=== PATIENT | female | born 1980 | race Caucasian/White ===

== ENCOUNTER 2018-11-23 01:16 | Emergency (ER) | payer BC ==
[2018-11-23] MEDS ORDERED: Ketorolac Tromethamine 60 MG/2 ML VIAL ONE (01:53)
--- NOTE | 2018-11-23 08:19 | RAD ---
RIGHT KNEE FOUR VIEWS: History: Pain. Comparison: None. FINDINGS: Moderate sized joint effusion. No acute fracture or malalignment. Mild widening of the medial joint space. IMPRESSION: Moderate joint effusion, greater than expected for the minimal degenerative changes although there is widening of the medial joint space. There is also soft tissue swelling along the medial knee concern ing for possible transient lateral patellar dislocation. Orthopedic consultation advised. POS: CET
== END 2018-11-23 02:47 | disposition home or self-care (01) ==
LOC: ERS 01:16
DX: S80.01XA Contusion of right knee, initial encounter (principal); I10 Essential (primary) hypertension; F17.210 Nicotine dependence, cigarettes, uncomplicated; Z79.899 Other long term (current) drug therapy; Z79.84 Long term (current) use of oral hypoglycemic drugs; X50.9XXA Other and unspecified overexertion or strenuous movements or postures, initial encounter
CPT/HCPCS: 96372; J1885

== ENCOUNTER 2018-12-12 06:55 | Observation (INO) | payer BC ==
[2018-12-11 10:55] VITALS: BMI 34.4
[2018-12-12] MEDS ORDERED: Midazolam HCl 2 mg/2 ml Vial ONE ×2 (07:47→12:20)
[2018-12-12] MEDS ORDERED: Fentanyl 100 MCG/2 ML VIAL ONE ×4 (07:47→11:21)
[2018-12-12] MEDS ORDERED: Dexamethasone 4 mg/ml Vial ONE (07:53)
[2018-12-12 08:22] LABS: BHCG - Serum Negative (NEGATIVE); Pregs Control Background? CLEAR/WHITE (CLR/WHITE); Pregs Control Bar Appear? YES (CONTROL BAR)
[2018-12-12 08:23] LABS: #Basophils 0.1 thou/uL (0.0-0.2); #Eosinphils 0.2 thou/uL (0.0-0.7); #Lymphocytes 2.4 thou/uL (1.20-3.40); #Monocytes 0.7 thou/uL (0.11-0.59); #Neutrophils 6.9 thou/uL (1.40-6.50); %Basophils 1.4 % (0.0-1.0); %Eosinophils 1.6 % (0.0-10.0); %Lymphocytes 23.3 % (21.0-51.0); %Monocytes 6.6 % (0.0-10.0); %Neutrophils 67.2 % (42.0-75.0); Hemoglobin 14.4 g/dL (12.0-16.0); Mean Corpuscular HGB CONC 33.4 g/dL (32.0-36.0); Mean Corpuscular Hemoglobin 29.9 pg (27.0-31.0); Mean Corpuscular Volume 89.6 fL (78.0-98.0); Mean Platelet Volume 7.6 fL (7.4-10.4); Platelet Count 347 thou/uL (130-400); RBC Distribution Width 12.5 % (11.5-14.5); Red Blood Cell (RBC) Count 4.82 mill/uL (4.20-5.40); White Blood Cell (WBC) Count 10.3 thou/uL (4.8-10.8)
[2018-12-12 08:24] LABS: Anion Gap 12 mmol/L (10-20); BUN (Urea Nitrogen) 7 mg/dL (7.0-18.7); Calc. Creatinine Clearance 161 mL/min (70-130); Calcium 9.4 mg/dL (7.8-10.44); Carbon Dioxide 31 mmol/L (22-29); Chloride 101 mmol/L (98-107); Estimated GFR-MDRD 79; Glucose 122 mg/dL (70-105); Potassium 3.3 mmol/L (3.5-5.1); Sodium 141 mmol/L (136-145)
[2018-12-12] MEDS ORDERED: HYDROmorphone 2 MG/ML VIAL ONE (11:28)
--- NOTE | 2018-12-12 11:28 | OP ---
DATE OF PROCEDURE: 12/12/2018 PREOPERATIVE DIAGNOSES: Right knee ACL tear with a grade 3/4 condylar lesion, medial femoral condyle, approximately 8 to 9 mm in size and a significantly unstable bucket-handle lateral meniscus tear. POSTOPERATIVE DIAGNOSES: Right knee ACL tear with a grade 3/4 condylar lesion, medial femoral condyle, approximately 8 to 9 mm in size and a significantly unstable bucket-handle lateral meniscus tear. PROCEDURES PERFORMED: 1. Right knee exam under anesthesia. 2. Right knee arthroscopy with arthroscopically assisted ACL reconstruction using an allograft, Achilles tendon. 3. Lateral meniscus repair. SINGLE POINTED OPERATOR: Jim Groves PA-C. BLOOD LOSS: Minimal. COMPLICATIONS: None. IMPLANTS: We used three Speed Cinch devices to fix the meniscus. We used a 7 x 25 metal interference screw on the femur, a bicortical screw with a soft tissue washer on the tibia as well as a 9 x 23 Bio[employer]posite interference screw on the tibia. DISPOSITION: She did go to recovery room in stable condition. INDICATIONS: This is a 38-year-old female, who injured her knee about 10 days ago, found to have a significant ACL tear as well as lateral meniscus tear and at this time, wished to have surgery. DESCRIPTION OF PROCEDURE: After all verbal consent forms were explained and signed, she was taken to the operative time, and at this time was given general anesthetic. Once the level of anesthesia was appropriate, exam under anesthesia confirmed a positive German's. Tourniquet was placed on the right thigh, and the leg was placed in arthroscopic leg ramachandran. It was then prepped and draped in standard surgical fashion. The limb was exsanguinated and tourniquet taken to 300 mmHg. Inferolateral portal was established. Scope was placed into the knee joint. Needle localization technique was then used to make a medial working portal just off the medial edge of the patellar tendon. Diagnostic arthroscopy commenced in the notch. The ACL was found to be torn. PCL was intact. Lateral meniscus was noted to be in the notch medially. There was a grade 3/4 chondral lesion on the lateral edge of the medial femoral condyle approximately 8 to 9 mm in diameter. The unstable flaps were taken down gently with the shaver and this was left alone. The remaining femur and tibia were in good condition. Medial meniscus was probed, found to be intact. The lateral compartment then found a significantly unstable bucket-handle lateral meniscus that we could place back easily into its position. Also looked like it had some capsular avulsion of the coronary ligament. A 2 to 3 mm portion of this tear extended anterior to the popliteal hiatus. At this time, we used a Speed Cinch devices to try and tack down our meniscus posteriorly and then one just anterior to the popliteal hiatus and this was accomplished and was felt to be stable. At this time, we then went through the gutters and swept through. There were no loose bodies were noted. The patellofemoral joint was in good condition. At this time, notchplasty was performed using the shaver and socrates in standard fashion. We then flexed the knee up into the aorta and then through an [id number] guide, and pin was placed up and out the anterolateral thigh through the medial portal. A 10 mm reamer was used. The bony debris was removed from the knee. This bone tunnel was then dilated with a 10 mm dilator. At this time, we then turned our attention to the tibia with the guide set at 55 degrees. The pin was placed into the knee joint. Again, 10 mm reamer was used to ream our tibial tunnel. Again, all loose bony cartilage and debris were removed from the knee joint and the edge was smoothed off with a rasp and socrates. Once this was done, we then flexed the knee up and through the medial portal, used the pin to pull our passing suture up into the knee and we then pulled this down through the tibial tunnel and used this to pull our graft into the knee joint. A 7 x 25 metal interference screw was then used to fixate our femoral side. Our tibial side then had a 9 x 23 Bio[employer]posite interference screw up the canal and drilled, tapped, and placed a bicortical screw with a soft tissue washer for backup fixation on the tibia. At this time, camera was introduced to the knee to make sure the screw was not in the joint and it was not. Graft was intact and full range of motion was achieved with no impingement. The scope was then removed. Knee was drained. Excess tendon was cut off. We then closed our portals with simple Prolene stitches. Multiple Vicryl and Prolene stitch were used for tibial incision. Bulky sterile dressing was applied. Tourniquet was let down. Toes pinked up nicely. The patient was awakened and taken to the recovery room in stable condition. All counts were correct at the end of the case. She did receive preoperative IV antibiotics. Job ID: [id number]
[2018-12-12] MEDS ORDERED: diphenhydrAMINE 50 MG CAP PO PRN (11:40)
[2018-12-12] MEDS ORDERED: Zolpidem Tartrate 5 MG TAB PO PRN (11:40)
[2018-12-12] MEDS ORDERED: HYDROcodone/Acetaminophen 7.5/325 mg Tablet PO PRN (11:40)
[2018-12-12] MEDS ORDERED: Morphine 2 MG/ML SYRINGE SLOW IVP PRN (11:40)
[2018-12-12] MEDS ORDERED: Bisacodyl 10 MG SUPP PR PRN (11:40)
[2018-12-12] MEDS ORDERED: Ondansetron PF 4 MG/2 ML Vial IVP PRN (11:40)
[2018-12-12] MEDS ORDERED: Milk Of Magnesia 30 ML UDCUP PO PRN (11:40)
[2018-12-12] MEDS ORDERED: Acetaminophen 500 MG TAB PO PRN (11:40)
[2018-12-12] MEDS ORDERED: Sodium Chloride 0.9% 1,000 ML IV SCH (11:45)
[2018-12-12] MEDS ORDERED: Ketorolac Tromethamine 30 MG/ML VIAL IVP SCH ×2 (12:00→18:00)
[2018-12-12] MEDS ORDERED: Lidocaine 1% (PF) 30 ML VIAL ONE (12:16)
[2018-12-12] MEDS ORDERED: Ondansetron HCl/PF 4 MG/2 ML Vial IVP PRN (12:32)
[2018-12-12] MEDS ORDERED: Promethazine HCl 25 MG/ML VIAL IM/IV PRN (12:32)
[2018-12-12] MEDS ORDERED: HYDROmorphone 2 MG/ML VIAL SLOW IVP PRN (12:32)
[2018-12-12] MEDS: Morphine 4 MG/ML VIAL SLOW IVP PRN (14:00)
[2018-12-12] MEDS: Ketorolac Tromethamine 30 MG/ML VIAL IVP SCH ×2 (15:51→20:53)
[2018-12-12] MEDS: HYDROcodone/Acetaminophen 7.5/325 mg Tablet PO PRN (16:01)
[2018-12-12] MEDS ORDERED: Ropivacaine 0.2% HCl/PF (40 MG/20 ML VIAL) ONE (16:06)
[2018-12-12] MEDS ORDERED: Bupivacaine HCl 0.5%/Epinephrine 1:200,000/PF 30 ml Vial ONE (16:06)
[2018-12-12] MEDS ORDERED: Ketorolac Tromethamine 30 MG/ML VIAL ONE (16:38)
[2018-12-12] MEDS ORDERED: Lidocaine 1% PF 5 ML VIAL ONE (16:38)
[2018-12-12] MEDS ORDERED: PROPOFOL 200 MG/20 ML VIAL ONE (16:38)
[2018-12-12] MEDS ORDERED: Ondansetron PF 4 MG/2 ML Vial ONE (16:38)
[2018-12-12] MEDS: CEFAZOLIN 2 GM in Premix Bag 1 BAG IVPB SCH (17:32)
[2018-12-12] MEDS: traMADol HCl 50 MG TAB PO PRN (20:52)
[2018-12-12] MEDS: Famotidine 20 MG TAB PO SCH (20:53)
[2018-12-12] MEDS: Methocarbamol 500 MG TAB PO PRN (20:53)
[2018-12-13] MEDS: CEFAZOLIN 2 GM in Premix Bag 1 BAG IVPB SCH (00:44)
[2018-12-13] MEDS: Ketorolac Tromethamine 30 MG/ML VIAL IVP SCH (03:48)
[2018-12-13] MEDS ORDERED: metFORMIN 500 MG TAB PO SCH (08:00)
[2018-12-13] MEDS: traMADol HCl 50 MG TAB PO PRN (08:22)
[2018-12-13] MEDS: Famotidine 20 MG TAB PO SCH (08:23)
[2018-12-13] MEDS ORDERED: Amlodipine 5 MG TAB PO SCH (09:00)
[2018-12-13] MEDS ORDERED: Naltrexone Hcl [Naltrexone Hcl] 50 MG PO SCH (09:00)
[2018-12-13] MEDS ORDERED: Bupropion 150 MG XL TAB PO SCH (09:00)
[2018-12-13] MEDS ORDERED: Hydrochlorothiazide 25 MG TAB PO SCH (09:00)
[2018-12-13] MEDS: Methocarbamol 500 MG TAB PO PRN (10:22)
[2018-12-13] MEDS: Morphine 4 MG/ML VIAL SLOW IVP PRN (10:22)
[2018-12-13 11:40] VITALS: BP 138/83; TEMP 98.5
[2018-12-13] MEDS: HYDROcodone/Acetaminophen 7.5/325 mg Tablet PO PRN (13:47)
--- NOTE | 2018-12-17 17:28 | EKG ---
Test Reason : PREOP Blood Pressure : / mmHG Vent. Rate : 075 BPM Atrial Rate : 075 BPM P-R Int : 146 ms QRS Dur : 094 ms QT Int : 366 ms P-R-T Axes : 027 040 -06 degrees QTc Int : 408 ms Normal sinus rhythm Nonspecific T wave abnormality Abnormal ECG No previous ECGs available Confirmed by JONELLE MCKAY (2) on 12/17/2018 5:28:13 PM Referred By: NITA Confirmed By:JONELLE MCKAY
== END 2018-12-13 14:31 | disposition home or self-care (01) ==
LOC: SDC 06:55 → SURG A 11:56
PROVIDERS: ADMIT Orthopaedic Surgery; ATTEND Orthopaedic Surgery
PROC: 0MRN47Z Replacement of Right Knee Bursa and Ligament with Autologous Tissue Substitute, Percutaneous Endoscopic Approach (ICD-10-PCS; principal; 2018-12-12)
PROC: 0SBC4ZZ Excision of Right Knee Joint, Percutaneous Endoscopic Approach (ICD-10-PCS; 2018-12-12)
DX: S83.511A Sprain of anterior cruciate ligament of right knee, initial encounter (principal); S83.251A Bucket-handle tear of lateral meniscus, current injury, right knee, initial encounter; I10 Essential (primary) hypertension; Z79.84 Long term (current) use of oral hypoglycemic drugs; Z79.899 Other long term (current) drug therapy; Z98.890 Other specified postprocedural states; W19.XXXA Unspecified fall, initial encounter
CPT/HCPCS: 36415; 80048; 84703; 85025; 93005; 93010; 96365; 96375; 96376; C1713; G0378; J0670; J1100; J1170; J1885; J2001; J2250; J2270; J2405; J2704; J2795; J3010